=== PATIENT | female | born 1955 | race Caucasian/White ===

== ENCOUNTER 2017-01-01 16:16 | Emergency (ER) | payer SELFPAY ==
[2017-01-01] MEDS: Sodium Chloride 0.9% 1,000 ML PRIMARY IV ONE (16:25)
--- NOTE | 2017-01-01 16:44 | EKG ---
[address] [address] Measurements Intervals [place] Rate: 83 P: 74 UT: 125 QRS: 89 QRSD: 130 T: -64 QT: 442 QTc: 482 Interpretive Statements SINUS RHYTHM POSSIBLE RIGHT ATRIAL ENLARGEMENT POSSIBLE LEFT ATRIAL ENLARGEMENT RIGHT BUNDLE BRANCH BLOCK MODERATE T-WAVE ABNORMALITY, CONSIDER ANTEROLATERAL ISCHEMIA MODERATE T-WAVE ABNORMALITY, CONSIDER INFERIOR ISCHEMIA No previous ECG available for comparison Electronically Signed On 01-02-17 10:48:43 MDT by Timothy Rodriguez [id number]
[2017-01-01] MEDS ORDERED: ALTEPLASE 100 MG VIAL IV ONE (16:52)
[2017-01-01 17:01] LABS: BASOPHILS # (AUTO) 0.04 10*3/UL; BASOPHILS % (AUTO) 0.3 % (0-1); EOSINOPHILS # (AUTO) 0.02 10*3/UL; EOSINOPHILS % (AUTO) 0.1 % (0-8); HEMOGLOBIN 15.2 g/dL (12.0-16.0); LYMPHOCYTES # (AUTO) 3.45 10*3/uL; MEAN CORPUSCULAR HEMOGLOBIN 33.1 PG (27-31); MEAN CORPUSCULAR HGB CONC 35.3 g/dL (33-37); MEAN CORPUSCULAR VOLUME 93.7 FL (81-99); MEAN PLATELET VOLUME 11.2 FL (7.4-12.2); MONOCYTES # (AUTO) 0.82 10*3/UL (0.3-0.8); MONOCYTES % (AUTO) 6.1 % (5-15); NEUTROPHILS # (AUTO) 9.18 10*3/UL; NEUTROPHILS % (AUTO) 67.7 % (50-80); RED BLOOD COUNT 4.59 10^6/uL (4.20-5.40)
--- NOTE | 2017-01-01 17:06 | DI ---
3: Unresponsive Comparison: None Findings: Ventricles and sulci are mildly prominent, but unremarkable for the patient's age. There is mild christina ventricular density consistent with small vessel ischemic changes. Hypodensity is slightly more promi nent in the left parieto-occipital region. This may be an incidental finding, and may indicate an are a of acute infarct. M. are I would be needed for confirmation. There is no hemorrhage. There are no space-occupying lesions. There is no extra axial fluid collection. There is no depressed skull fracture. Mastoid cells are well aerated. Impression: Mild atrophic and mild small vessel ischemic changes. White matter hypodensity is slightly prominent in the left parieto-occipital region, possibly indicat ing an area of acute infarct. MRI would be needed for confirmation No hemorrhage Findings relayed to the emergency room physician at 4:45 PM
[2017-01-01 17:07] LABS: BUN/CREATININE RATIO 19.09 (6-20); CALCIUM 10.2 mg/dL (8.7-10.7); SERUM ALBUMIN 4.5 g/dL (3.5-4.8)
[2017-01-01 17:16] LABS: PLATELET MORPHOLOGY COMMENT NORMAL MORPHOLOGY (NORM); RBC MORPHOLOGY COMMENT NORMAL MORPHOLOGY (NORM); WBC MORPHOLOGY COMMENT NORMAL MORPHOLOGY (NORM)
[2017-01-01] MEDS ORDERED: TPN - PHA to Dose IV PRN (17:22)
[2017-01-01 17:36] LABS: VENOUS PH 7.35 (7.32-7.42)
[2017-01-01] MEDS ORDERED: Sodium Chloride 0.9% 1,000 ML ONE (17:40)
--- NOTE | 2017-01-01 17:47 | DI ---
AP CHEST X-RAY, 01/01/2017 4:04 PM : Clinical History: The patient is unresponsive. Previous Exam: None at this facility. There is no acute soft tissue or bony abnormality. Heart size is normal. Lungs are clear. Mediastinal structures are normal. There are no pulmonary nodules. Reading: Normal chest x-ray.
--- NOTE | 2017-01-01 17:55 | PDOC ---
Neuro Symptoms / Deficit HPI - General Chief Complaint: Neurological Complaints Stated Complaint: UNRESPONSIVE / POSSIBLE STROKE Date Seen by Provider: 01/01/17 Time Seen by Provider: 16:20 Source: POSITIVE: Patient, Other (Boyfriend) Exam Limitations: POSITIVE: Clinical condition (Patient unresponsive to verbal stimuli) Nurse's Notes Reviewed & Considered: Yes - History of Present Illness Initial Comments: The patient is a 61-year-old female who is visiting [place] from their home in [place]. She is traveling with her boyfriend. 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 She reportedly had an episode of vomiting. Boyfriend states that shortly thereafter the patient would not respond to his questions. Boyfriend states that the patient's "eyes rolled back into her head". She noted drooping of the patient's face on the right and he noted that she was not using her right arm. Boyfriend states that 2 or 3 days ago the patient complained of some easy fatigability and shortness of breath and yesterday she complained of "vertigo". Boyfriend states that that when she woke up this morning the patient told him that "she felt great". According to the boyfriend, the patient is on no medications. She smoked up until a year ago in his presently on nicotine supplements. Boyfriend is not aware that the patient has any known medical problems and no known allergies. Patient has had 2 hip replacements. 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 DENIES: Fever, Chills, Sweating, Chest Pain, Neck Pain, Back Pain, Headache, Fainting, Seizure, Altered Mental Status, Disoriented, Confused, Agitated, Trouble Concentrating, Trouble Thinking, Decreased Responsiveness, Other Usual Ability to Walk/Stand: REPORTS: Walks w/o Assistance Usual Cognition: REPORTS: Alert & Oriented x3 Similar Symptoms Previously: No Recently seen/treated/hospitalized: No Any Prior Injuries Related to Current Complaint?: No - Patient Allergies Allergies/Adverse Reactions: Allergies Allergy/AdvReac Type Severity Reaction Status Date / Time No Known Allergies Allergy Unverified 01/01/17 16:29 Past Medical History - heen HEENT History: Denies History, Other (please comment) (Past medical history obtained from the patient's boyfriend and also telephonically from the patient' s daughter, Martell Jones, phone #[phone]) Cardiovascular History: Denies History Respiratory History: Denies History Gastrointestinal History: Denies History Genitourinary History: Denies History Endocrine History: Denies History Musculoskeletal History: Other (please comment) (Bilateral hip replacement) Neurological History: Denies History Blood Disorders: Denies History Psychiatric History: Denies History Cancer History: Denies History History of Other Communicable Diseases: No History of Exposure to Communicable Disease: No Tobacco Use: Former Smoker Alcohol Use: Occasionally Substance Use Type: None Previous Hospitalizations: Yes (hip replacements) Previous Surgical History: Yes Anesthesia Reactions: No Malignant Hyperthermia: No Family History of Malignant Hyperthermia: No Past Medical History Reviewed: Reviewed - No Changes ROS - Limitations ROS Limitations: Clinical Condition (Patient unresponsive verbally), Other ( please comment) (Review of systems obtained from patient's boyfriend, cold laterally.) Constitution: REPORTS: Weakness (Right-sided weakness including right facial weakness) Cardiovascular: REPORTS: Denies Cardiac Symptoms Respiratory: REPORTS: Shortness Of Breath (Boyfriend states that patient did complain of some shortness of breath 2 or 3 days ago) Neurological: REPORTS: Facial Asymmetry (Right), Weakness (Right-sided weakness as above). DENIES: Seizure Activity Gastrointestinal: REPORTS: Vomitting (Emesis 1 about the time she developed neurologic symptoms) Endocrine: REPORTS: Denies Symptoms Musculoskeletal: REPORTS: Denies MS Symptoms Genitourinary: REPORTS: Denies Symptoms Eyes: REPORTS: Denies Symptoms ENT: REPORTS: Denies Symptoms Skin: REPORTS: Denies Skin Symptoms Lympathic: REPORTS: Denies Lympathic Symptoms Immunologic: POSITIVE: Denies Symptoms Psychiatric: POSITIVE: Denies Psych Symptoms Neuro Symptoms / Deficit Exam - General Appearance General Appearance: POSITIVE: Other (Patient nonverbal. Left eye noted to be deviating to the left. Right facial weakness and weakness of right arm; right upper extremity greater than lower.). NEGATIVE: Alert - HEENT HEENT: POSITIVE: Head Inspection Nml, Ears Inspection Nml, Nose Inspection Nml, Oral/Dental Inspect. Nml, Pharynx Inspect. Nml, PERRL, EOMI. NEGATIVE: Eyes Inspection Nml (Left eye deviated to the left) - Pupil Size Pupil Size: 3 mm: Bilateral (pupils equal round and reactive) - Neuro / Psych Higher Functions: POSITIVE: No Response to Command, Withdraws to Pain ( Withdraws right arm weakly to noxious stimuli; withdraws left arm, left leg and right leg to noxious stimuli). NEGATIVE: Oriented to Person, Oriented to Place , Oriented to Time, Normal Speech, Normal Cognition, Abnml Response to Command ( Patient initially unresponsive to commands) Cranial Nerves: POSITIVE: Facial Palsy (Right), Forehead Involved Cerebellar: NEGATIVE: Normal As Tested (Unable to test) Peripheral Exam: POSITIVE: Motor Normal (Right hemiplegia), Hemiplegia (Right). NEGATIVE: Sensation Normal (Unable to test) - Neck Neck: POSITIVE: Supple, Non-Tender, No Carotid Bruit - Respiratory Respiratory: POSITIVE: No Respiratory Distress, Breath Sounds Normal - Cardiovascular Cardiovascular: POSITIVE: Regular Rate & Rhythm, Heart Sounds Normal Peripheral Pulses: Radial (R): 2+, Radial (L): 2+ - Abdomen Abdomen: Soft: (All Quadrants), Normal Bowel Sounds: (All Quadrants), Denies Tenderness: (All Quadrants), No Splenomegaly: (All Quadrants), No Hepatomegaly: (All Quadrants), No Guarding: (All Quadrants), No Rebound: (All Quadrants), No Palpable Pulse: (All Quadrants), No Palpabale Mass: (All Quadrants), No Distention: (All Quadrants), No Rigidity: (All Quadrants) - Skin Skin: POSITIVE: Intact, Normal For Race, Warm, Dry, No Rash - Extremities Extremity: Non-Tender: (All Extremities), Normal ROM: (All Extremities) ( passively on right), Normal Inspection: (All Extremities), Pelvis Stable: (All Extremities), Normal Tendon Exam: (All Extremities) Images - Complete Complete: 1 - Weakness right upper extremity, especially distally 2 - Weakness right lower extremity, but less profound than right upper extremity 3 - Right facial weakness 4 - Deviation of left eye to the left Neuro Symptom/Deficit Progress - Results Reviewed by me Xrays/CTs/US Reviewed by me: Yes Discussed with Radiologist: Yes Radiology Findings: No hemorrhage or masses. Radiologist reports that there is a small white matter hypodensity in the left parietal occipital area. Lab Results Reviewed: Yes (troponin elevated at 0.3) Lab Results:: Laboratory Results 01/01/17 01/01/17 Range/Units 16:20 17:30 WBC 13.55 H (4.8-10.8) 10^3/uL RBC 4.59 (4.20-5.40) 10^6/uL Hgb 15.2 (12.0-16.0) g/dL Hct 43.0 (37.0-47.0) % MCV 93.7 (81-99) FL MCH 33.1 H (27-31) PG MCHC 35.3 (33-37) g/dL RDW Std Deviation 46.0 (39-50) fL RDW Coeff of Héctor 13.9 (11.5-14.5) % Plt Count 157 (140-350) 10*3/uL MPV 11.2 (7.4-12.2) FL Immature Gran % (Auto) 0.3 (0-5) % Neut % (Auto) 67.7 (50-80) % Lymph % (Auto) 25.5 (10-50) % [place] % (Auto) 6.1 (5-15) % Eos % (Auto) 0.1 (0-8) % Baso % (Auto) 0.3 (0-1) % Immature Gran # (Auto) 0.04 10*3/UL Neut # (Auto) 9.18 10*3/UL Lymph # (Auto) 3.45 10*3/uL [place] # (Auto) 0.82 H (0.3-0.8) 10*3/UL Eos # (Auto) 0.02 10*3/UL Baso # (Auto) 0.04 10*3/UL WBC Morphology Comment Normal morphology (NORM) Plt Morphology Comment Normal morphology (NORM) RBC Morph Comment Normal morphology (NORM) PT 10.9 (9.7-11.4) secs INR 1.03 (0.00-5.90) N/A APTT 24.0 (22.6-36.2) SECS VBG pH 7.35 (7.32-7.42) VBG pCO2 24 L (45-55) mmHg VBG HCO3 13 L (22-26) mmol/L VBG Base Excess -12 L (-2-2) MMOL/L Sodium 139 (135-145) meq/L Potassium 4.5 (3.8-5.2) meq/L Chloride 107 (98-112) meq/L Carbon Dioxide 21 L (23-33) meq/L Anion Gap 11 (5-20) BUN 21 (7-22) mg/dL Creatinine 1.1 (0.50-1.20) mg/dL Estimated GFR 50 (>60 ml/min/1.73m(2)) BUN/Creatinine Ratio 19.09 (6-20) Glucose 179 H (78-110) mg/dL Calculated Osmolality 294.0 H (267-292) mOsm/kg Lactic Acid 2.4 H (0.70-2.10) MMOL/L Calcium 10.2 (8.7-10.7) mg/dL Total Bilirubin 0.7 (0.3-1.2) mg/dL AST 52 H (8-39) IU/L ALT 39 (9-52) IU/L Alkaline Phosphatase 75 (38-126) IU/L Total Protein 7.8 (6.1-8.0) g/dL Albumin 4.5 (3.5-4.8) g/dL Globulin 3.3 (2.50-4.10) g/dL Albumin/Globulin Ratio 1.30 (1.3-2.0) mg/g EKG Interpreted/Reviewed By Me:: Yes EKG Interpretation:: POSITIVE: Normal Sinus Rhythm, Normal Rate, Normal ST/T ( ST depression with T-wave inversion lateral leads), Abnormal EKG. NEGATIVE: Normal Intervals (Right bundle-branch block), Normal [place], Normal QRS (Right bundle-branch block) - Patient's Progress Pain Medication Addressed: POSITIVE: Not Applicable School/Work Release Addressed: POSITIVE: Not Applicable Re-Examine Time:: 17:05 Re-Examine Comment: Patient meets criteria for TPA. I discussed the reasons for administering TPA and possible complications with the patient's daughter, Martell Jones, by phone. Her phone number is [phone]. Patient's daughter gives informed substituted consent to proceed with thrombolyzes. Re-Examine Time: 17:35 Re-Examine Comment: Patient's neurological condition does seem to be some improved. Patient will localize now when asked questions, but her speech is unintelligible. There is no longer any deviation of her left eye. Proximal strength of her right arm seems to be improved and she will withdraw her right arm better to noxious stimuli. Hand grasp seems to still be weak. Examination of lower extremity shows improvement. She still has right facial weakness, but somewhat less. Vital signs have remained normal. Oxygen saturation at this time is 95% on oxygen supplementation, blood pressure 146/74. Heart rate 56. Repeat electrocardiogram continues to show ischemic changes in the lateral leads. Status: POSITIVE: Improved, Re-Examined Antibiotics Given: No CVA/Syncope Quality Measure Initiative: POSITIVE: EKG, t-PA Considered - Consult Consult (If Yes, Name of Consulting MD & Time Called): Yes (Dr. Kebede, neurology and Dr. [place]iel[place] [facility] [facility] Counseled: POSITIVE: Family (Boyfriend and daughter), RE: Lab Results, RE: Radiology Results, RE: DX, RE: Need for F/U Patient Care Time - Estimated PCT Patient Care Time (In Minutes): 70 Vital Signs - Recent Vital Signs Vital Signs: On arrival blood pressure 119/76, heart rate 90, respiratory rate 12 temperature 95.8F. On discharge blood pressure 141/74, oxygen saturation on oxygen supplementation 97% pulse 60 respiratory rate 12 - VS Reviewed Vital Signs Reviewed: Yes Critical Care Note - Critical Care Note Total Time (mins): 90 Critical Care: Recurrent Physical Assessment Required, Life Threatening Scenario , Interpretation of Labs - Management Adjusted Based on Results, Interpretation Imaging Studies - Management Adjusted Based on Results History Source: Family (And boyfriend), Caregiver Discussion with Family: Daughter Discussion with Director Mobile: Dr. Kebede, neurology and Dr. Montiel, ER Comments: [place] [facility] [place] [facility] [place]. Tapia accepting physicians. Discharge Clinical Impression: Cerebrovascular accident, Non-ST elevation (NSTEMI) myocardial infarction Condition: Poor Date Decision to Transfer to Another Facility: 01/01/17 Time Decision to Transfer to Another Facility: 17:15
[2017-01-01 18:00] LABS: TROPONIN I 0.322 ng/mL (< 0.040)
--- NOTE | 2017-01-01 18:00 | EKG ---
[address] [place] [address] Measurements Intervals [place] Rate: 58 P: 72 [place]: 123 QRS: 89 QRSD: 123 T: -57 QT: 468 QTc: 464 Interpretive Statements SINUS BRADYCARDIA WITH SINUS ARRHYTHMIA RIGHT BUNDLE BRANCH BLOCK MODERATE T-WAVE ABNORMALITY, CONSIDER INFERO- LATERAL ISCHEMIA Compared to ECG 01/01/2017 16:19:18 Sinus rhythm no longer present T-wave abnormality still present Possible ischemia still present Electronically Signed On 01-02-17 10:47:13 MDT by Timothy Rodriguez [email or web address]
[2017-01-01 18:01] LABS: CKMB RATIO 2.77 %; CREATINE KINASE MB 3.8 NG/ML (0.00-5.00)
[2017-01-01 19:23] VITALS: RESP 16; TEMP 97.4
== END 2017-01-01 18:24 | disposition short-term general hospital (02) ==
LOC: ER 16:16
DX: I63.9 Cerebral infarction, unspecified (principal); G81.91 Hemiplegia, unspecified affecting right dominant side; I21.4 Non-ST elevation (NSTEMI) myocardial infarction; R79.89 Other specified abnormal findings of blood chemistry; R94.31 Abnormal electrocardiogram [ECG] [EKG]; R06.02 Shortness of breath; R29.810 Facial weakness; R11.2 Nausea with vomiting, unspecified
CPT/HCPCS: 36415; 70450; 71010; 80053; 82550; 82553; 82803; 83605; 83880; 84484; 85025; 85610; 85730; 93005; 93010; 99291 ×2; J2997; J7030